=== PATIENT | male | born 2000 | race Caucasian/White ===

== ENCOUNTER 2024-12-19 23:54 | Emergency (ER) | payer SELFPAY ==
[~2024-12-19] VITALS: Ht 165.1 cm; Wt 70.0 kg
[2024-12-19 23:56] VITALS: BP 110/62; PULSE 84; RESP 18; TEMP 36.8; O2SAT 96
== END 2024-12-20 00:50 | disposition home or self-care (01) ==
LOC: ER 12-20 00:06
DX: T51.0X1A Toxic effect of ethanol, accidental (unintentional), initial encounter (principal); F10.129 Alcohol abuse with intoxication, unspecified; X58.XXXA Exposure to other specified factors, initial encounter; Y90.9 Presence of alcohol in blood, level not specified
CPT/HCPCS: 99283